=== PATIENT | female | born 1945 | race Caucasian/White ===

== ENCOUNTER → 2020-11-21 | Outpatient (CLI) | payer MEDICARE ==
[2020-11-21 10:08] VITALS: BP 136/81; PULSE 94; RESP 18; TEMP 97.9
--- NOTE | 2020-11-21 11:12 | P.HPOB ---
History of Present Illness H&P Date: 11/21/20 Chief Complaint: The patient is here for her routine gynecologic exam and ma mmogram. This is a 75-year-old with an LMP of 1987. She is here to establish with this office. She is status post LYNDA/BSO for benign reasons. It has been about 8 years since her last pelvic exam. She is without gynecologic complaints. Review of Systems Her weight has been stable.. She denies respiratory, cardiac and G.I. problems. She denies maltreatment or problems with falling. : she denies any significant problems with urinary leakage. Past Medical History Past Medical History: GERD/Reflux, Hyperlipidemia, Hypertension, Osteoarthritis (OA), Thyroid Disorder Additional Past Medical History / Comment(s): SL ELEVATED CHOLESTEROL, NO TX. HAS THYROID NODULES. LIPOMA TO LT CHEST. Osteopenia. 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 History of Any Multi-Drug Resistant Organisms: None Reported Past Surgical History: Appendectomy, Hysterectomy Additional Past Surgical History / Comment(s): LYNDA/BSO in 1987. Colonoscopy 2018(q4yr). Past Anesthesia/Blood Transfusion Reactions: No Reported Reaction Past Psychological History: No Psychological Hx Reported Smoking Status: Former smoker Past Alcohol Use History: Occasional (5 per month) Additional Past Alcohol Use History / Comment(s): Previously smoked socially only. Quit. Past Drug Use History: None Reported Additional History: She has been since 1987 and this is her second marriage. 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 - Past Family History Brother(s) Additional Family Medical History / Comment(s): Aortic aneurysm. Sister(s) Family Medical History: Cancer Additional Family Medical History / Comment(s): Colon cancer. Another sister had an aortic aneurysm. Father Family Medical History: Myocardial Infarction ([place]) Medications and Allergies Home Medications Medication Instructions Recorded Confirmed Type Losartan-Hctz 50-12.5 mg [Hyzaar 1 tab PO DAILY 06/01/14 11/21/20 History 50-12.5] Cholecalciferol (Vitamin D3) 10,000 unit PO DAILY 10/29/16 11/21/20 History [Vitamin D3] Omeprazole [PriLOSEC] 20 mg PO DAILY PRN 10/29/16 11/21/20 History Ascorbic Acid [Vitamin C] 500 mg PO DAILY 11/21/20 11/21/20 History Aspirin 81 mg PO DAILY 11/21/20 11/21/20 History Quercetin 500 mg PO DAILY 11/21/20 11/21/20 History metFORMIN HCL 500 mg PO DAILY 11/21/20 11/21/20 History Allergies Allergy/AdvReac Type Severity Reaction Status Date / Time No Known Allergies Allergy Verified 11/21/20 10:01 Exam Vital Signs Temp Pulse Resp BP Pulse Ox 11/21/20 10:05 97.9 F 94 18 136/81 100 Intake and Output 11/20/20 11/21/20 11/21/20 22:59 06:59 14:59 Other: Weight 72.121 kg Height 5 feet 3 inches, weight 159 pounds, BMI 28.2. This is a well-developed well-nourished white female who is alert and oriented times 3 in no acute distress. HEENT: Within normal limits. NECK: Supple without mass or thyromegaly. CHEST AND LUNGS: Clear to auscultation. HEART: Regular rate and rhythm. BREASTS: Are without mass or discharge. AXILLARY EXAM: Negative for adenopathy. BACK: Negative for CVA tenderness. ABDOMEN: Soft, nontender, without palpable masses. PELVIC EXAM: External genitalia appears normal with mild atrophy. Vagina appears normal mild to moderate atrophy. There is no evidence of prolapse. Bimanual examination is negative for mass or tenderness. RECTAL EXAM: Rectovaginal exam is negative for mass or tenderness and is negative for occult blood. EXTREMITIES: Nontender. IMPRESSION: 1. 75-year-old menopausal female status post LYNDA/BSO for benign reasons with normal gynecologic exam. 2. History of osteopenia. PLAN: 1. Pap smears have been discontinued. 2. Self breast awareness was discussed with the patient. 3. Screening mammogram will be done today. 4. Osteoporosis prevention was discussed. I have stressed the importance of adequate calcium, vitamin D and regular exercise. Recommended amounts of calcium and vitamin D were also discussed. I have recommended bone density testing since it is been more than 5 years since her last one. 5. He did receive her flu shot this past fall. She will be considering the Covid vaccination when available. 6. The patient was advised to return in 1-2 years for her well woman examination.
--- NOTE | 2020-11-22 11:23 | MM ---
Reason for exam: screening (asymptomatic). Last mammogram was performed 6 years and 2 months ago. History: Patient is postmenopausal. Physical Findings: A clinical breast exam by your physician is recommended on an annual basis and results should be correlated with mammographic findings. MG 3D Screening Mammo W/Cad Bilateral CC and MLO view(s) were taken. Prior study comparison: September 26, 2014, bilateral MG screening mammo w CAD. September 06, 2013, bilateral digital screening mammo w/CAD. There are scattered fibroglandular densities. No significant changes when compared with prior studies. ASSESSMENT: Benign, BI-RAD 2 RECOMMENDATION: Routine screening mammogram of both breasts in 1 year.
== END | disposition home or self-care (01) ==
LOC: WWCWWP 09:48
PROVIDERS: ATTEND Obstetrics & Gynecology
DX: Z12.31 Encounter for screening mammogram for malignant neoplasm of breast (principal)
CPT/HCPCS: 77063; 77067

== ENCOUNTER → 2023-06-10 | Outpatient (CLI) | payer MEDICARE ==
[2023-06-10 12:55] VITALS: RESP 16; TEMP 98
[2023-06-10 12:57] VITALS: BP 95/62; PULSE 87
--- NOTE | 2023-06-10 13:42 | P.HPOB ---
History of Present Illness H&P Date: 06/10/23 Chief Complaint: The patient is here for her routine gynecologic exam and ma mmogram. This is a 78-year-old with an LMP of 1987. She is status post LYNDA/BSO for benign reasons. She has noticed some small bumps in the right labia which are not painful. She states she has tried to squeeze them but nothing came out. She is otherwise without gynecologic complaints. Review of Systems She has lost about 4 pounds over the past 2 years. Respiratory: She has had some mucous drainage in the back of her throat since she had Covid last year. She denies cardiac problems. GI: Occasional stomach upset or GI gas. Past Medical History Past Medical History: Diabetes Mellitus, GERD/Reflux, Hyperlipidemia, Hypertension, Osteoarthritis (OA), Thyroid Disorder Additional Past Medical History / Comment(s): SL ELEVATED CHOLESTEROL, NO TX. HAS THYROID NODULES. LIPOMA TO LT CHEST. Type 2 diabetes. Osteopenia. 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 History of Any Multi-Drug Resistant Organisms: None Reported Past Surgical History: Appendectomy, Hysterectomy Additional Past Surgical History / Comment(s): LYNDA/BSO in 1987. Colonoscopy 2018(q4yr). Past Anesthesia/Blood Transfusion Reactions: No Reported Reaction Past Psychological History: No Psychological Hx Reported Smoking Status: Former smoker Past Alcohol Use History: Occasional (3 per month.) Additional Past Alcohol Use History / Comment(s): Previously smoked socially only. Quit. Past Drug Use History: None Reported Additional History: She has been since 1987 and this is her second marriage. They are not sexually active. 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 They spend part of the winter in [place]. - Past Family History Brother(s) Family Medical History: Cancer Additional Family Medical History / Comment(s): Aortic aneurysm. Sister(s) Family Medical History: Cancer Additional Family Medical History / Comment(s): Colon cancer. Another sister had an aortic aneurysm. Father Family Medical History: Myocardial Infarction ([place]) Medications and Allergies Home Medications Medication Instructions Recorded Confirmed Type Losartan-Hctz 50-12.5 mg [Hyzaar 1 tab PO DAILY 06/01/14 06/10/23 History 50-12.5] Cholecalciferol (Vitamin D3) 10,000 unit PO DAILY 10/29/16 06/10/23 History [Vitamin D3] Omeprazole [PriLOSEC] 20 mg PO DAILY PRN 10/29/16 06/10/23 History Aspirin 81 mg PO DAILY 11/21/20 06/10/23 History metFORMIN HCL 500 mg PO DAILY 11/21/20 06/10/23 History glipiZIDE [Glucotrol] 2.5 mg PO DAILY 06/10/23 06/10/23 History Allergies Allergy/AdvReac Type Severity Reaction Status Date / Time No Known Allergies Allergy Verified 06/10/23 12:51 Exam Vital Signs Temp Pulse Resp BP Pulse Ox 06/10/23 12:55 98 F 87 16 95/62 98 06/10/23 12:53 98 F 16 Intake and Output 06/09/23 06/10/23 06/10/23 22:59 06:59 14:59 Other: Weight 70.307 kg Height 5 foot 1 inch, weight 155 pounds, BMI 29.3. This is a well-developed well-nourished white female who is alert and oriented times 3 in no acute distress. HEENT: Within normal limits. NECK: Supple without mass or thyromegaly. CHEST AND LUNGS: Clear to auscultation. HEART: Regular rate and rhythm. BREASTS: Are without mass or discharge. AXILLARY EXAM: Negative for adenopathy. BACK: Negative for CVA tenderness. ABDOMEN: Soft, nontender, without palpable masses. PELVIC EXAM: External genitalia reveals mild to moderate atrophy. There are 2 small inclusion cysts on the right posterior labia majora each measuring impression a 4 mm. They appear benign and are nontender and noninflamed. Vagina appears normal with mild atrophy. There is a grade 2 rectocele noted. Bimanual examination is negative for mass or tenderness. RECTAL EXAM: Rectovaginal exam is negative for mass or tenderness and is negative for occult blood. Rectal exam does confirm a small rectocele. EXTREMITIES: Nontender. IMPRESSION: 1. 78-year-old menopausal female status post LYNDA/BSO with a grade 2 rectocele which is asymptomatic. 2. 2 benign appearing inclusion cysts in the right labia majora. 3. History of osteopenia. PLAN: 1. Pap smears have been discontinued. 2. Self breast awareness was discussed with the patient. We have also discussed symptoms associated with inflammatory breast cancer. 3. Screening mammogram will be done today. 4. I have reassured her about the small inclusion cysts have recommended that she try not to squeeze them. She will call if she is noticing significant changes or problems. 5. We have discussed the small rectocele. We will proceed with conservative management. Information on pelvic prolapse and rectocele were given to the patient. She will call if problems. 6.Osteoporosis prevention was discussed. I have stressed the importance of adequate calcium, vitamin D and regular exercise. Recommended amounts of calcium and vitamin D were also discussed. She believes she had a bone density test done at the [facility]. She will try to get a copy of the results for me. 7. The patient was advised to return in 1-2 years for her well woman examination and as needed.
--- NOTE | 2023-06-11 12:54 | MM ---
Reason for Exam: Screening (asymptomatic). Last mammogram was performed 2 year(s) and 7 month(s) ago. Patient History: Menarche at age 9. First Full-Term at age 20. Left ovary removed at age 42. Right ovary removed at age 42. Hysterectomy at age 42. Postmenopausal. Risk Values: Eunice 5 year model risk: 1.7%. NCI Lifetime model risk: 3.0%. Prior Study Comparison: 09/06/2013 Bilateral Screening Mammogram, [facility]. 09/26/2014 Bilateral Screening Mammogram, [facility]. 11/21/2020 Bilateral Screening Mammogram, [facility]. Tissue Density: There are scattered fibroglandular densities. Findings: Analyzed By CAD. Pattern appears symmetrical and stable. Focal asymmetries in the outer left breast. There is extensive vascular calcification present bilaterally. No suspicious groups of microcalcifications, spiculated or lobular masses, architectural distortion or other secondary signs of malignancy are mammographically apparent. Overall Assessment: Benign, BI-RAD 2 Management: Screening Mammogram of both breasts in 1 year. A negative mammogram report should not preclude additional follow up of suspicious palpable abnormalities. Patient should continue monthly self breast exam. A clinical breast exam by your physician is recommended on an annual basis and results should be correlated with mammographic findings. Electronically signed and approved by: Silvestre Doran D.O. Radiologis
== END ==
LOC: WWCWWP 12:36
PROVIDERS: ATTEND Obstetrics & Gynecology
DX: Z12.31 Encounter for screening mammogram for malignant neoplasm of breast (principal); N95.1 Menopausal and female climacteric states; E11.9 Type 2 diabetes mellitus without complications; E78.00 Pure hypercholesterolemia, unspecified; I10 Essential (primary) hypertension; K21.9 Gastro-esophageal reflux disease without esophagitis; M19.90 Unspecified osteoarthritis, unspecified site; M85.80 Other specified disorders of bone density and structure, unspecified site; N81.6 Rectocele; N60.01 Solitary cyst of right breast; Z79.84 Long term (current) use of oral hypoglycemic drugs; Z87.891 Personal history of nicotine dependence; Z90.49 Acquired absence of other specified parts of digestive tract; Z90.710 Acquired absence of both cervix and uterus; Z90.722 Acquired absence of ovaries, bilateral
CPT/HCPCS: 77063; 77067

== ENCOUNTER → 2024-05-04 | Outpatient (CLI) | payer MEDICARE ==
[2024-05-04 09:01] VITALS: BP 139/82; PULSE 69; RESP 17; TEMP 98
--- NOTE | 2024-05-04 10:24 | P.PN ---
Progress Note - Text Progress Note Date: 05/04/24 Chief Complaint: Vulvar itching and burning for 1 month HPI: This is a 79-year-old with an LMP of 1987. She is status post LYNDA/BSO for benign reasons. The patient developed vulvar itching and burning about 1 month ago and this has not improved. She especially notices this burning with urination. She has noticed some urinary urgency without significant frequency. She states she has been voiding small amounts. She feels that the vulva is swollen. She has noticed a slight discharge which was yellowish without odor. Scratching the vulvar area seems to make the symptoms even worse. She is not sexually active. ROS: She denies fever. She denies respiratory or cardiac problems. GI: She has had intestinal gas with episodes of constipation and diarrhea. She also feels bloated frequently. The bloating does seem to intermittently subside, but she has had episodes of bloating for about 2 months. PE: Blood pressure: 139/82, Height: 5 foot 1 inch, Weight: 160 pounds, Temperature: 98.0, Pulse: 69. Pulse oximeter 97% This is a well developed, well nourished, white female who is alert and orientedx3, in no acute distress. Abdomen soft, nontender, without palpable masses. External genitalia reveals generalized erythema in an hourglass shape around the vulva, perineum and perianal areas. There is fairly clear demarcation. There is no significant pallor. There are no focal lesions. There is no evidence of ulceration or excoriation. Vagina reveals mild to moderate atrophy without unusual discharge or vaginal odor. There is a grade 2 rectocele noted and this is stable from her previous exam. There are no vaginal lesions Bimanual examination: There is a palpable mass near the vaginal cuff measuring approximately 3 to 4 cm and is firm and slightly irregular. This is nontender. Impression: 1. 79-year-old menopausal female status post LYNDA/BSO with multiple complaints. 2. Vulvar itching and burning with evidence of acute vulvitis which does not have the appearance of lichen sclerosis. Differential diagnosis will include vulvar irritation, Mireille vaginitis, bacterial vaginosis. 3. Urinary symptoms including some urinary urgency and small voids, and dysuria. Possible cystitis. 4. 2-month history of abdominal bloating and distention. 5. Palpable pelvic mass near the vaginal cuff. This possibly could represent stool because she has had episodes of constipation. An ovarian mass is less likely because of her history of LYNDA/BSO. We do have discussed the possibility of a ovarian remnant syndrome which is unlikely. Plan: 1. Affirm vaginitis panel was obtained from the vagina. 2. Urine has been obtained for urinalysis with culture and sensitivities. 3. Kenalog 0.1% cream twice daily as needed for vulvar itching and irritation. She can use this in the perianal area since the erythema seems to extend down to that area. The electronic prescription will be sent to [facility] pharmacy. 4. Pelvic ultrasound was also recommended to further evaluate the pelvic mass. She was advised to try to empty her bowels the best she can and she states she does use MiraLAX periodically for constipation. The order slip was given to the patient for this. 5. She was advised to avoid over washing with soap and also to avoid scratching and rubbing the vulvar area. 6. She will return for her regular well woman examination in the near future and as needed. Time spent with the patient: 25 minutes
--- NOTE | 2024-05-05 14:48 | P.PN ---
Progress Note - Text Progress Note Date: 05/05/24 OUTPATIENT FOLLOW-UP NOTE TEST(S)/RESULTS: Test results from 05/04/2024 include affirm testing which was negative for trichomonas, Mireille, and bacterial vaginosis. Urinalysis showed trace leukocyte Estrace. METHOD OF NOTIFICATION: The patient was notified by phone on 05/05/2024. PATIENT COMMENTS: She has not yet picked up the Kenalog cream. DIAGNOSIS: Negative affirm testing for vaginitis infections. Urinalysis not quite conclusive. Based on her symptoms I am not convinced she has a UTI and we will await the urine culture. DISCUSSION: PLAN: Kenalog cream as directed. Await urine culture.
== END ==
LOC: WWCWWP 08:38
PROVIDERS: ATTEND Obstetrics & Gynecology
DX: R39.15 Urgency of urination (principal); L29.2 Pruritus vulvae; R30.0 Dysuria; B96.89 Other specified bacterial agents as the cause of diseases classified elsewhere; Z90.722 Acquired absence of ovaries, bilateral; Z90.710 Acquired absence of both cervix and uterus; Z78.0 Asymptomatic menopausal state

== ENCOUNTER → 2024-05-10 | Outpatient (CLI) | payer MEDICARE ==
--- NOTE | 2024-05-10 16:09 | US ---
EXAMINATION TYPE: US pelvis limited transvag DATE OF EXAM: 05/10/2024 COMPARISON: CT abdomen and pelvis 10/07/2015 CLINICAL INDICATION: Female, 79 years old with history of R14.0 ABD BLOATING; 3cm mass vaginal cuff p er order. Hx hysterectomy & b/l oophorectomy TECHNIQUE: Transvaginal (TV) and Transabdominal (TA) . Transabdominal sonographic images of the pel vis were acquired. Transvaginal sonographic images were medically necessary to better assess the fol lowing anatomy: EXAM MEASUREMENTS: Uterus: Surgically absent Endometrial Stripe: Surgically absent Right Ovary: Surgically absent Left Ovary: Surgically absent 1. Uterus: Surgically absent 2. Endometrium: Surgically absent 3. Right Ovary: Surgically absent 4. Left Ovary: Surgically absent 5. Bilateral Adnexa: Left adnexal mass-like area noted transabdominally measuring 6.4 x 4.9 x 5.4 cm . No peristalsis or vascularity noted. Not seen transvaginally. Mass vs. possible bowel? 6. Posterior cul-de-sac: wnl Excessive bowel noted during transvaginal exam. Vaginal cuff appears wnl during transvaginal exam. Vaginal cuff appears within normal limits however there is extensive bowel gas noted. Post surgical c hanges of the uterus and bilateral ovaries removal. Left adnexal masslike area noted on the transabdo travis portion of the exam. IMPRESSION: 1. Ultrasound appearance of the vaginal cuff appears within normal limits however there is extensive bowel gas noted which limits exam. 2. Postsurgical change of the uterus and bilateral ovarian removal. 3. Left adnexal questionable masslike area which may represent a mass versus bowel. Consider further evaluation with CT abdomen and pelvis with IV and oral contrast.
--- NOTE | 2024-05-11 08:58 | P.PN ---
Progress Note - Text Progress Note Date: 05/11/24 OUTPATIENT FOLLOW-UP NOTE TEST(S)/RESULTS: Urine culture done on 05/04/2024 grew Klebsiella oxytoca. Pelvic ultrasound done on 05/10/2024 and showed a possible left pelvic mass measuring about 6 cm but they could not determine if it was bowel or an actual mass. CT scan of the abdomen and pelvis was recommended. METHOD OF NOTIFICATION: The patient was notified by phone on 05/11/2024. The patient states she was contacted by Dr. Cagle' office regarding the urine culture and was treated with Macrobid twice daily x 5 days. PATIENT COMMENTS: The patient states she has been using the Kenalog cream and this has been helping a lot. DIAGNOSIS: Klebsiella UTI being treated with Macrobid. Improvement in her vulvar symptoms with Kenalog cream. Palpable pelvic mass with possible pelvic mass by ultrasound and CT scan was recommended. DISCUSSION: We will plan on doing the CT scan of the abdomen and pelvis with IV and oral contrast as recommended by the radiologist. My office will call and help her to schedule this. PLAN: As above.
== END | disposition home or self-care (01) ==
LOC: RADUSWWP 15:22
PROVIDERS: ATTEND Obstetrics & Gynecology
DX: R14.3 Flatulence (principal); R14.0 Abdominal distension (gaseous)
CPT/HCPCS: 76830; 76857

== ENCOUNTER → 2024-05-17 | Outpatient (CLI) | payer MEDICARE ==
[2024-05-17 08:25] LABS: African American GFR (CKD) >90 (>60 ml/min/1.73 sqM); Blood Urea Nitrogen 18 mg/dL (7-17); Non-African American GFR(CKD) 84 (>60 ml/min/1.73 sqM)
--- NOTE | 2024-05-17 21:55 | CT ---
EXAMINATION TYPE: CT abdomen pelvis w con DATE OF EXAM: 05/17/2024 COMPARISON: 10/07/2015 INDICATION: pelvis mass DLP: 1278 mGycm, Automated exposure control for dose reduction was used. CONTRAST: 100 mL of Isovue 300. Study performed with Oral Contrast TECHNIQUE: Axial images were obtained from above the diaphragm to the pubic rami in the axial plane a t 5 mm thick sections. Reconstructed images are reviewed on the computer in the coronal plane. FINDINGS: Limited CT sections are obtained the lung bases. The lung bases are clear. There is a moderate size hiatal hernia present CT ABDOMEN: Liver: Mild fatty infiltration of liver is present. No discrete masses are evident Spleen: Normal Pancreas: Normal Adrenal glands: The adrenal glands are normal. Gallbladder: Normal Kidneys: No masses are evident. No hydronephrosis is present. Peripelvic cysts appear to be present. No cortical renal cysts are present. Delayed images were obtained through the kidneys, which grace in unremarkable. Aorta: Vascular calcification is within the aorta. Inferior vena cava: Normal. CT PELVIS: No discrete pelvic mass is identified. Loops of bowel within the abdomen and pelvis are normal. Scattered colonic diverticuli are evident. There are loops of bowel which are incompletely distended or lack oral contrast limiting their eval uation. Appendix: Not visualized. No suspicious dilated to rupture or inflammatory changes evident. Urinary bladder: Normal. Genitourinary structures: Uterus and ovaries are not identified. Osseous structures: No suspicious lytic or sclerotic lesions. IMPRESSION: 1. Mild fatty infiltration liver. 2. Moderate-sized hiatal hernia. 3. Peripelvic renal cysts, present previously. 4. Diverticulosis without acute diverticulitis
== END | disposition home or self-care (01) ==
LOC: RADCTMAIN 07:41
PROVIDERS: ATTEND Obstetrics & Gynecology
DX: K76.0 Fatty (change of) liver, not elsewhere classified (principal); K44.9 Diaphragmatic hernia without obstruction or gangrene; K57.90 Diverticulosis of intestine, part unspecified, without perforation or abscess without bleeding; R19.09 Other intra-abdominal and pelvic swelling, mass and lump; N28.1 Cyst of kidney, acquired
CPT/HCPCS: 82565; 84520; 74177; 36415; Q9967

== ENCOUNTER → 2024-11-10 | Outpatient (CLI) | payer MEDICARE ==
--- NOTE | 2024-11-15 10:53 | MM ---
Reason for Exam: Screening (asymptomatic). Last mammogram was performed 1 year(s) and 5 month(s) ago. Patient History: Menarche at age 9. First Full-Term at age 20. Left ovary removed at age 42. Right ovary removed at age 42. Hysterectomy at age 42. Postmenopausal. Risk Values: Eunice 5 year model risk: 1.7%. NCI Lifetime model risk: 2.8%. Prior Study Comparison: 09/26/2014 Bilateral Screening Mammogram, [facility]. 11/21/2020 Bilateral Screening Mammogram, [facility]. 06/10/2023 Bilateral MG 3D screening mammo w/cad, [facility]. Tissue Density: The breasts are heterogeneously dense, which may obscure small masses. Findings: Analyzed By CAD. There is no suspicious group of microcalcifications or new suspicious mass in either breast. Overall Assessment: Benign, BI-RAD 2 Management: Screening Mammogram of both breasts in 1 year. . Patient should continue monthly self-breast exams. A clinical breast exam by your physician is recommended on an annual basis. This exam should not preclude additional follow-up of suspicious palpable abnormalities. Note on Eunice scores and lifetime risk: 1. A Eunice score greater than 3% is considered moderate risk. If this is the case, consider specialist referral to assess eligibility for a risk reducing agent. 2. If overall lifetime risk for the development of breast cancer is 20% or higher, the patient may qualify for future screening with alternating mammogram and breast MRI. [facility], , 11/15/2024 10:50 AM. Electronically signed and approved by: Elvis Bowen M.D. Radiologis
== END | disposition home or self-care (01) ==
LOC: RADMAMWWP 10:17
PROVIDERS: ATTEND Family Medicine
DX: Z12.31 Encounter for screening mammogram for malignant neoplasm of breast (principal); Z90.722 Acquired absence of ovaries, bilateral; Z78.0 Asymptomatic menopausal state; R92.333 Mammographic heterogeneous density, bilateral breasts
CPT/HCPCS: 77063; 77067